=== PATIENT | male | born 1945 | race Caucasian/White ===

== ENCOUNTER 2020-07-16 20:16 | Observation (INO) ==
[2020-07-17] MEDS ORDERED: Naloxone 0.4 MG/ML INJ IVP PRN (00:32)
[2020-07-17] MEDS: Heparin 25,000UNIT/250ML 1/2NS 25,000 UNIT/250 ML IV.SOLN IVC SCH ×2 (01:46→20:43)
[2020-07-17] MEDS ORDERED: Gabapentin 300 MG CAPSULE PO ONE (01:58)
[2020-07-17 02:37] LABS: Basophils % 0.4 %; Eosinophils # 0.1 K/mcL (0.0-0.6); Eosinophils % 2.9 %; Hemoglobin 12.3 g/dL (12.9-16.9); Immature Granulocytes % 0.8 % (0-4); Lymphocytes # 1.4 K/mcL (0.6-4.6); Lymphocytes % 56.3 %; Mean Corpuscular HGB Conc 33.2 g/dL (31.6-35.5); Mean Corpuscular Hemoglobin 31.3 pg (28.0-33.3); Mean Corpuscular Volume 94.1 fL (83.0-100.0); Mean Platelet Volume 9.1 fL (9.4-12.4); Monocytes # 0.7 K/mcL (0.0-1.3); Monocytes % 30.4 %; Neutrophils # 0.2 K/mcL (1.6-8.9); Platelet Count 215 K/mcL (140-400); Red Blood Count 3.93 M/mcL (4.19-5.50); Red Cell Distribution Width 12.4 % (11.5-14.5); Segmented Neutrophils % 9.2 %; White Blood Count 2.4 K/mcL (4.3-11.1)
[2020-07-17 02:42] LABS: Anisocytosis 1+ (Not Present); Platelet Estimate Normal (Normal)
[2020-07-17 02:54] LABS: BUN/Creatinine Ratio 10 (6-26); Blood Urea Nitrogen 11 mg/dL (8-23); Calcium 9.6 mg/dL (8.6-10.3); Carbon Dioxide 27 mEq/L (23-29); Chloride 103 mEq/L (98-107); Glucose 108 mg/dL (70-105); Osmolality,Calculated 282 (280-300); Potassium 3.9 mEq/L (3.5-5.1); Sodium 136 mEq/L (136-145); Troponin I < 0.03 ng/mL (< 0.04); eGFR For African Americans > 60 (> 60); eGFR For Non-African Americans > 60 (> 60)
[2020-07-17 02:56] LABS: INR 1.1; Prothrombin Time 13.2 Seconds (9.4-12.1)
[2020-07-17 03:19] LABS: Activated Partial Thrombo Time 183.4 Seconds (26.0-36.0)
[2020-07-17] MEDS ORDERED: *HR* Heparin 5,000 UNIT/ML VIAL IVP PRN ×2 (04:15)
[2020-07-17] MEDS ORDERED: Perflutren Lipid Microsphere 1.3 ML in 0.9 % Sodium Chloride 8.7 ML IVP PRN (07:47)
[2020-07-17] MEDS: Gabapentin 300 MG CAPSULE PO SCH ×4 (08:40→20:37)
[2020-07-17] MEDS ORDERED: Gabapentin 300 MG CAPSULE PO SCH (13:00)
[2020-07-17] MEDS: Nicotine 7 MG PATCH.TD24 TD SCH (15:58)
[2020-07-17] MEDS: ALPRAZolam 0.5 MG TABLET PO SCH (20:37)
[2020-07-18] MEDS: Heparin 25,000UNIT/250ML 1/2NS 25,000 UNIT/250 ML IV.SOLN IVC SCH (00:34)
[2020-07-18 01:56] LABS: Basophils % 1.3 %; Eosinophils # 0.1 K/mcL (0.0-0.6); Hematocrit 33.4 % (37.5-50.1); Hemoglobin 11.1 g/dL (12.9-16.9); Immature Granulocytes % 2.3 % (0-4); Lymphocytes # 1.7 K/mcL (0.6-4.6); Lymphocytes % 54.9 %; Mean Corpuscular HGB Conc 33.2 g/dL (31.6-35.5); Mean Corpuscular Hemoglobin 31.4 pg (28.0-33.3); Mean Corpuscular Volume 94.6 fL (83.0-100.0); Monocytes % 34.2 %; Neutrophils # 0.1 K/mcL (1.6-8.9); Platelet Count 217 K/mcL (140-400); Red Blood Count 3.53 M/mcL (4.19-5.50); Red Cell Distribution Width 12.7 % (11.5-14.5); Segmented Neutrophils % 4.3 %
[2020-07-18 02:20] LABS: BUN/Creatinine Ratio 12 (6-26); Blood Urea Nitrogen 13 mg/dL (8-23); Carbon Dioxide 27 mEq/L (23-29); Chloride 105 mEq/L (98-107); Glucose 123 mg/dL (70-105); Osmolality,Calculated 285 (280-300); Potassium 3.8 mEq/L (3.5-5.1); Sodium 137 mEq/L (136-145); eGFR For African Americans > 60 (> 60); eGFR For Non-African Americans > 60 (> 60)
[2020-07-18] MEDS: Nicotine 7 MG PATCH.TD24 TD SCH (07:59)
[2020-07-18] MEDS: ALPRAZolam 0.5 MG TABLET PO SCH (07:59)
[2020-07-18] MEDS: Gabapentin 300 MG CAPSULE PO SCH ×2 (07:59→12:40)
[2020-07-18] MEDS ORDERED: Apixaban 5 MG TABLET PO SCH (09:00)
[2020-07-18] MEDS ORDERED: FLUoxetine 20 MG CAPSULE PO SCH (09:00)
[2020-07-18] MEDS ORDERED: Losartan/HCTZ 50-12.5 TABLET PO SCH (09:00)
[2020-07-18] MEDS ORDERED: Budesonide/Formoterol 160/4.5 1 PUFF INH IH SCH (10:00)
[2020-07-18 11:36] VITALS: BP 98/63
== END 2020-07-18 14:04 | disposition home or self-care (01) ==
LOC: 2ANU → SUATTDRO 07-17 00:04
PROVIDERS: ADMIT Internal Medicine; ATTEND Family Medicine